=== PATIENT | female | born 1960 | race African-American/Black ===

== ENCOUNTER 2016-08-24 16:26 | Emergency (ER) | payer MEDICAID ==
[~2016-08-24] VITALS: Ht 162.6 cm; Wt 80.0 kg
[2016-08-24 16:28] VITALS: BP 120/80
[2016-08-24] MEDS ORDERED: DIPH25CA83 PO (16:32)
[2016-08-24] MEDS ORDERED: DULO60CA44 PO (16:32)
[2016-08-24] MEDS ORDERED: LAMO25TA4 PO (16:32)
[2016-08-24] MEDS ORDERED: ALPR-392 PO (16:32)
[2016-08-24] MEDS ORDERED: TRAZ-132 PO (16:32)
[2016-08-24] MEDS ORDERED: BUSP15TA3 PO (16:32)
== END 2016-08-24 19:45 | disposition left against medical advice (07) ==
LOC: ER 16:27
DX: R45.851 Suicidal ideations (principal); Z53.21 Procedure and treatment not carried out due to patient leaving prior to being seen by health care provider

== ENCOUNTER 2017-03-12 07:46 | Emergency (ER) | payer MEDICAID ==
[~2017-03-12] VITALS: Ht 162.6 cm; Wt 91.0 kg
[~2017-03-12 07:46] MED LIST: ALPR-392 PO; BUSP15TA3 PO; DIPH25CA83 PO; DULO60CA44 PO; LAMO25TA4 PO; TRAZ-132 PO
[2017-03-12 08:40] LABS: HEMATOCRIT. 37.9 % (36.0-48.0); HEMOGLOBIN. 12.7 g/dL (12.0-16.0); MEAN CORPUSCULAR HEMOGLOBIN 31.8 pg (28.0-32.0); MEAN PLATELET VOLUME 9.7 fl (7.4-10.4); PLATELET 205 x1000/uL (130-400); RED BLOOD CELL COUNT 3.99 mill/uL (4.2-5.4); RED CELL DISTRIBUTION WIDTH 14.2 % (11.6-14.6)
[2017-03-12 08:53] LABS: CARBON DIOXIDE 25 mEq/L (21-32); CHLORIDE 109 mEq/L (98-107); ETHANOL BLOOD < 10 mg/dL
[2017-03-12 09:03] LABS: PLATELET ESTIMATE NORMAL
[2017-03-12 11:02] LABS: CLARITY URINE CLOUDY (CLEAR); COLOR URINE YELLOW (YELLOW); GLUCOSE URINE NEGATIVE (NEGATIVE); KETONES URINE NEGATIVE (NEGATIVE); LEUKOCYTE ESTERASE URINE NEGATIVE (NEGATIVE); NITRITE URINE NEGATIVE (NEGATIVE); OCCULT BLOOD URINE 1+ (NEGATIVE); PROTEIN URINE 1+ (NEGATIVE)
[2017-03-12 11:49] LABS: *AMPHETAMINES SCREEN URINE NEGATIVE (NEGATIVE); *BARBITURATES SCREEN URINE NEGATIVE (NEGATIVE); *BENZODIAZEPINES SCREEN URINE PRESUMTIVE POSITIVE (NEGATIVE); *COCAINE SCREEN URINE PRESUMTIVE POSITIVE (NEGATIVE); CANNABINOID URINE SCREEN NEGATIVE (NEGATIVE); METHADONE URINE SCREEN NEGATIVE (NEGATIVE); OPIATES URINE SCREEN NEGATIVE (NEGATIVE); PHENCYCLIDINE URINE SCREEN NEGATIVE (NEGATIVE)
[2017-03-12] MEDS ORDERED: FAMOTIDINE 20MG TABLET PO ONE (14:30)
[2017-03-12] MEDS ORDERED: ACETAMINOPHEN 500MG TABLET PO ONE (16:15)
[2017-03-12] MEDS ORDERED: IBUPROFEN 600MG TABLET PO ONE (16:15)
[2017-03-12 16:30] VITALS: BP 138/89
== END 2017-03-12 18:21 | disposition home or self-care (01) ==
LOC: ER 07:46
DX: R45.851 Suicidal ideations (principal); R45.850 Homicidal ideations; R44.0 Auditory hallucinations; N39.0 Urinary tract infection, site not specified; F19.10 Other psychoactive substance abuse, uncomplicated; F17.210 Nicotine dependence, cigarettes, uncomplicated; Z88.8 Allergy status to other drugs, medicaments and biological substances; Z88.5 Allergy status to narcotic agent; F32.9 Major depressive disorder, single episode, unspecified; F43.10 Post-traumatic stress disorder, unspecified; Z87.828 Personal history of other (healed) physical injury and trauma
CPT/HCPCS: 36415; 80053; 80305; 80307; 80329; 81001; 85025; 93005; 99285; G0482

== ENCOUNTER 2017-09-24 16:02 | Emergency (ER) | payer MEDICAID ==
[~2017-09-24] VITALS: Ht 172.7 cm; Wt 100.0 kg
[2017-09-24 16:04] VITALS: BP 168/84
== END 2017-09-24 18:36 | disposition left against medical advice (07) ==
LOC: ER 16:02
DX: Z53.21 Procedure and treatment not carried out due to patient leaving prior to being seen by health care provider (principal); F41.9 Anxiety disorder, unspecified

== ENCOUNTER 2018-11-12 11:54 | Emergency (ER) | payer MEDICAID ==
[~2018-11-12] VITALS: Ht 170.2 cm; Wt 100.0 kg
[~2018-11-12 11:54] MED LIST changes: -TRAZ-132 PO; +TRAZ-213 PO
[2018-11-12] MEDS ORDERED: KETOROLAC 60MG/2ML VIAL IM ONE (12:30)
[2018-11-12] MEDS ORDERED: LORAZEPAM 0.5MG TABLET PO ONE (13:30)
[2018-11-12 14:21] VITALS: BP 145/95
== END 2018-11-12 14:23 | disposition home or self-care (01) ==
LOC: ER 11:54
DX: M54.41 Lumbago with sciatica, right side (principal); F14.10 Cocaine abuse, uncomplicated
CPT/HCPCS: 93970; 96372; 99284; J1885

== ENCOUNTER 2024-07-21 11:26 | Emergency (ER) | payer MEDICAID ==
[~2024-07-21] VITALS: Ht 160 cm; Wt 70.0 kg
[~2024-07-21 11:26] MED LIST changes: -DULO60CA44 PO; +DULO60CA45 PO; -LAMO25TA4 PO; +LAMO25TA9 PO; -TRAZ-213 PO; +TRAZ-252 PO
[2024-07-21 11:34] VITALS: O2SAT 99
[2024-07-21 12:53] LABS: CLARITY URINE CLEAR (CLEAR); COLOR URINE YELLOW (YELLOW); GLUCOSE URINE NEGATIVE (NEGATIVE); KETONES URINE NEGATIVE (NEGATIVE); LEUKOCYTE ESTERASE URINE NEGATIVE (NEGATIVE); NITRITE URINE NEGATIVE (NEGATIVE); OCCULT BLOOD URINE NEGATIVE (NEGATIVE); PROTEIN URINE NEGATIVE (NEGATIVE); SPECIFIC GRAVITY URINE 1.025 (1.005-1.030); UROBILINOGEN URINE 0.2 E.U./dL (0.2-1.0)
[2024-07-21 13:12] VITALS: BP 122/65; PULSE 89; RESP 19; TEMP 37.2; O2SAT 100
== END 2024-07-21 13:14 | disposition home or self-care (01) ==
LOC: ER 11:35
DX: M54.50 Low back pain, unspecified (principal); I10 Essential (primary) hypertension; Z79.899 Other long term (current) drug therapy; Z88.5 Allergy status to narcotic agent; Z88.8 Allergy status to other drugs, medicaments and biological substances
CPT/HCPCS: 81003; 99283

== ENCOUNTER 2024-08-04 15:50 | Emergency (ER) | payer MEDICAID ==
[~2024-08-04] VITALS: Ht 167.6 cm; Wt 69.0 kg
[2024-08-04 15:51] VITALS: O2SAT 100
[2024-08-04 16:19] VITALS: TEMP 36.6
[2024-08-04 18:27] LABS: BASOPHILS % 1.2 % (0.0-2.0); DIFFERENTIAL COMMENT 0; EOSINOPHILS % 3.3 % (0.0-5.0); HEMATOCRIT. 35.7 % (36.0-48.0); HEMOGLOBIN. 11.6 g/dL (12.0-16.0); LYMPHOCYTES % 43.7 % (20.0-50.0); MEAN CORPUSCULAR HGB CONC 32.6 g/dL (31.0-37.0); MONOCYTES % 6.6 % (2.0-8.0); NEUTROPHILS % 45.2 % (40.0-76.0); PLATELET 249 x1000/uL (130-400); RED BLOOD CELL COUNT 3.53 mill/uL (4.2-5.4); RED CELL DISTRIBUTION WIDTH 14.8 % (11.6-14.6); WHITE BLOOD COUNT 6.3 x1000/uL (4.5-11.0)
[2024-08-04 18:28] VITALS: O2SAT 97
[2024-08-04 18:33] VITALS: BP 143/71; PULSE 76; RESP 17; TEMP 97.9
[2024-08-04 18:38] LABS: CARBON DIOXIDE 27 mEq/L (21-32); CHLORIDE 106 mEq/L (98-107); POTASSIUM 4.7 mEq/L (3.5-5.1); SODIUM 140 mEq/L (136-145)
[2024-08-04 18:39] LABS: CALCIUM 9.1 mg/dL (8.7-10.4)
[2024-08-04 18:44] LABS: CREATININE 0.9 mg/dL (0.6-1.0); GLUCOSE 95 mg/dL (70-105); UREA NITROGEN BLOOD 19 mg/dL (9-23)
[2024-08-04 18:49] LABS: TROPONIN I HIGH SENSITIVITY < 4 ng/L (3.0-34)
== END 2024-08-04 19:38 | disposition home or self-care (01) ==
LOC: ER 15:50
DX: R07.9 Chest pain, unspecified (principal); R06.02 Shortness of breath; E78.5 Hyperlipidemia, unspecified; I10 Essential (primary) hypertension; E11.9 Type 2 diabetes mellitus without complications; Z79.899 Other long term (current) drug therapy; Z88.5 Allergy status to narcotic agent
CPT/HCPCS: 80048; 83880; 83690; 85025; 84484; 36415; 71045; 93005; 99285; Z7610